=== PATIENT | female | born 1975 | race Hispanic/Latino ===

== ENCOUNTER 2017-12-13 16:12 | Outpatient (CLI) | payer BC | END 2017-12-13 16:13 | disposition home or self-care (01) | LOC: BICMAMMO 16:12 | PROVIDERS: ATTEND Family Medicine | DX: Z12.31 Encounter for screening mammogram for malignant neoplasm of breast (principal); Z80.3 Family history of malignant neoplasm of breast | CPT/HCPCS: 77063; 77067 ==

== ENCOUNTER 2019-10-23 13:20 | Outpatient (CLI) | payer BC ==
--- NOTE | 2019-10-23 14:04 | RAD ---
Radiograph left hip 2 views: 10/23/2019 HISTORY: 44-year-old female with nontraumatic left hip pain FINDINGS: Femoral head contour and hip joint space are maintained. No subcapital osteophytes. No fracture or di slocation. Bony hypertrophy of acetabular roof. No destructive osseous lesion. At least mild DJD of left SI joint. IMPRESSION: 1. 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 2. Otherwise negative.
--- NOTE | 2019-10-23 14:05 | RAD ---
EXAM: XR Lumbar Spine 2 Or 3 View PROVIDED CLINICAL HISTORY: Low back pain. COMPARISON: None FINDINGS: Transitional vertebra is seen at the lumbosacral junction, and there are 6 nonrib-bearing lumbar-type vertebral bodies. For the purposes of this exam, lumbar vertebral bodies will be numbered L1 through L6. There is pseudoarticulation of the right lateral mass of L6 with the sacrum. Right convex rotoscoliosis of the lumbar spine is present. Grade 1 anterolisthesis of L5 on L6 is present measuring approximately 6 mm. Narrowing of the L5-6 and L6-S1 levels is present. The vertebral body h eights are within normal limits. No fracture is seen. IMPRESSION: 1. 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 There is pseudoarticulation of the right lateral mass of L6 with S1. 2. Grade 1 anterolisthesis of L5 on L6. 3. Right convex rotoscoliosis lumbar spine.
--- NOTE | 2019-10-23 15:33 | RAD ---
LEFT KNEE 3 VIEWS: Date: 10/23/2019 HISTORY: Left knee pain. FINDINGS/IMPRESSION: No fracture, dislocation, or bony destruction is seen. There is a tiny osteophyte arising from the an terior superior aspect of the patella. No joint effusion is seen. POS: [facility]
== END 2019-10-23 13:21 | disposition home or self-care (01) ==
LOC: BICRAD 13:20
PROVIDERS: ATTEND Family Medicine
DX: M25.562 Pain in left knee (principal); M54.5 Low back pain; M25.552 Pain in left hip; M25.762 Osteophyte, left knee; M43.16 Spondylolisthesis, lumbar region; M41.9 Scoliosis, unspecified; M48.9 Spondylopathy, unspecified; M47.898 Other spondylosis, sacral and sacrococcygeal region; M16.12 Unilateral primary osteoarthritis, left hip
CPT/HCPCS: 72100

== ENCOUNTER 2020-05-27 15:57 | Outpatient (CLI) | payer OTHER ==
--- NOTE | 2020-05-27 16:41 | MMO ---
Bilateral MAMMO Bilat Screen [facility]. CLINICAL HISTORY: Patient is 45 years old and is seen for screening. The patient has the following family history of breast cancer: mother and maternal grandmother. The patient has no personal history of cancer. VIEWS: The views performed were: bilateral craniocaudal with tomosynthesis and bilateral mediolateral oblique with tomosynthesis. FILMS COMPARED: The present examination has been compared to prior imaging studies performed at [facility] on 12/13/2017 and 01/15/2019, and at [facility] on 11/11/2015 and 11/18/2016. This study has been interpreted with the assistance of computer-aided detection. MAMMOGRAM FINDINGS: There are scattered fibroglandular densities. Focal density in the left outer breast is stable on the CC view. Focal density in the left upper breast on MLO view shows interval increase. In the right breast, there are no suspicious masses, calcifications or areas of architectural distortion. IMPRESSION: FINDING IN THE LEFT BREAST REQUIRES ADDITIONAL EVALUATION. SPOT COMPRESSION IS RECOMMENDED. AN ULTRASOUND EXAM IS RECOMMENDED IF NEEDED. ADDITIONAL IMAGING. THE RESULTS OF THIS EXAM WERE SENT TO THE PATIENT. ACR BI-RADS Category 0 - Incomplete: Need additional imaging evaluation. [facility] will notify the patient of the need for additional imaging services. MAMMOGRAPHY NOTE: 1. A negative mammogram report should not delay a biopsy if a dominant of clinically suspicious mass is present. 2. Approximately 10% to 15% of breast cancers are not detected by mammography. 3. Adenosis and dense breasts may obscure an underlying neoplasm. Reported by: ZEENAT VILLAFUERTE MD Electonically Signed: [id number]
== END 2020-05-27 15:58 | disposition home or self-care (01) ==
LOC: BICMAMMO 15:57
PROVIDERS: ATTEND Family Medicine
DX: Z12.31 Encounter for screening mammogram for malignant neoplasm of breast (principal); Z80.3 Family history of malignant neoplasm of breast
CPT/HCPCS: 77063; 77067

== ENCOUNTER 2020-05-28 14:45 | Outpatient (CLI) | payer OTHER ==
--- NOTE | 2020-05-28 15:51 | MMO ---
Left Breast MAMMO Unilat Diag [facility]. CLINICAL HISTORY: Patient is 45 years old and is seen for diagnostic exam. The patient has the following family history of breast cancer: mother and maternal grandmother. The patient has no personal history of cancer. VIEWS: The views performed were: left craniocaudal with tomosynthesis; left mediolateral oblique with tomosynthesis; and left mediolateral with tomosynthesis. FILMS COMPARED: The present examination has been compared to prior imaging studies performed at [facility] on 12/13/2017, 01/15/2019, 05/27/2020 and 05/28/2020. This study has been interpreted with the assistance of computer-aided detection. MAMMOGRAM FINDINGS: There are scattered fibroglandular densities. There is a mass measuring 15 millimeters with circumscribed margins seen in the left breast at 3 o'clock. CYST There are no suspicious masses, suspicious calcifications, or new areas of architectural distortion. IMPRESSION: THERE IS NO MAMMOGRAPHIC EVIDENCE OF MALIGNANCY. A ROUTINE FOLLOW-UP MAMMOGRAM IN 1 YEAR IS RECOMMENDED. THE RESULTS OF THIS EXAM WERE SENT TO THE PATIENT. ACR BI-RADS Category 2 - Benign finding MAMMOGRAPHY NOTE: 1. A negative mammogram report should not delay a biopsy if a dominant of clinically suspicious mass is present. 2. Approximately 10% to 15% of breast cancers are not detected by mammography. 3. Adenosis and dense breasts may obscure an underlying neoplasm. Reported by: HALIE DÍAZ MD Electonically Signed: [id number]
--- NOTE | 2020-05-28 16:18 | ULT ---
LEFT BREAST ULTRASOUND LIMITED: 05/28/20 HISTORY: Follow-up abnormal mammographic finding. The left breast is evaluated at 3 o'clock. There is a 0.8 x 1.2 x 1.6 cm diameter cyst at 3 o'clock 8 cm from the nipple corresponding to the ma mmographic finding. IMPRESSION: Benign left breast cyst at 3 o'clock corresponding to the mammographic finding. BIRADS 2: Benign Finding(s) Routine annual screening mammography (for women over age 40). POS: OFF
== END 2020-05-28 14:46 | disposition home or self-care (01) ==
LOC: BICMAMMO 14:45
PROVIDERS: ATTEND Family Medicine
DX: R92.2 Inconclusive mammogram (principal); N60.02 Solitary cyst of left breast
CPT/HCPCS: G0279

== ENCOUNTER 2021-06-01 08:05 | Outpatient (CLI) | payer OTHER | END 2021-06-01 08:06 | disposition home or self-care (01) | LOC: BICMAMMO 08:05 | PROVIDERS: ATTEND Family Medicine | DX: Z12.31 Encounter for screening mammogram for malignant neoplasm of breast (principal); Z80.3 Family history of malignant neoplasm of breast | CPT/HCPCS: 77063; 77067 ==

== ENCOUNTER 2022-06-22 13:38 | Outpatient (CLI) | payer OTHER | END 2022-06-22 13:39 | disposition home or self-care (01) | LOC: BICMAMMO 13:38 | PROVIDERS: ATTEND Family Medicine | DX: Z12.31 Encounter for screening mammogram for malignant neoplasm of breast (principal); Z80.3 Family history of malignant neoplasm of breast | CPT/HCPCS: 77063; 77067 ==